=== PATIENT | female | born 1965 | race Caucasian/White ===

== ENCOUNTER 2022-12-07 10:49 | Outpatient (CLI) | payer BC, SELFPAY ==
[2022-12-07 11:49] LABS: Free T4 Free Thyroxine 1.37 ng/mL (0.78-2.19)
[2022-12-09 12:58] LABS: Vitamin D 25 Hydroxy 27.8 ng/mL
== END 2022-12-07 10:50 | disposition home or self-care (01) ==
LOC: ANHLAB 10:52
PROVIDERS: Visit Provider Internal Medicine Endocrinology, Diabetes & Metabolism
DX: E03.9 Hypothyroidism, unspecified (principal); R79.89 Other specified abnormal findings of blood chemistry
CPT/HCPCS: 36415; 82306; 84439; 84443

== ENCOUNTER 2023-07-08 08:08 | Outpatient (CLI) | payer BC, SELFPAY ==
--- NOTE | ~2023-07-08 | US_ITS ---
EXAMINATION: US thyroid DATE: 07/08/2023 08:27 INDICATION: Hypothyroidism TECHNIQUE: Multiple ultrasound images of the thyroid were obtained. COMPARISON: None. FINDINGS: The right thyroid lobe measures 5.6 x 1.9 x 2.1 cm. The left thyroid lobe measures 5.8 x 1.9 x 2.4 c m. There are 3 nodules which are solid or predominantly solid, wider than tall isoechoic with ill-def ined margins and without echogenic (TI-RADS 3, mildly suspicious , FNA if >=2.5 cm, annual followup i s >1.5 cm), the largest measuring 2.4 cm in the inferior left thyroid lobe, the second measuring 1.5 cm in the mid left thyroid and the third measuring 2.0 cm in the inferior right thyroid. There is dif fuse heterogeneous echogenicity with mildly coarsened echotexture and diffusely increased vascular fl ow throughout the thyroid which can be seen with thyroiditis. IMPRESSION: 1. Three separate TI RADS 3 nodules, the largest measuring 2.4 cm in the inferior left thyroid, which annual ultrasound follow-up would be recommended. 2. Mildly enlarged thyroid with heterogeneous echogenicity, coarsened echotexture and diffuse increas ed vascular flow on color Doppler which can be seen with thyroiditis. Reviewed, dictated and finalized at location A. IMPRESSION: 1. Three separate TI RADS 3 nodules, the largest measuring 2.4 cm in the inferi or left thyroid, which annual ultrasound follow-up would be recommended. 2. Mildly enlarged thyroid with heterogeneous echogenicity, coarsened echotextu re and diffuse increased vascular flow on color Doppler which can be seen with thyroiditis.
== END 2023-07-08 08:09 ==
LOC: MICIMG 08:09
PROVIDERS: PCP Internal Medicine Endocrinology, Diabetes & Metabolism; Visit Provider Internal Medicine Endocrinology, Diabetes & Metabolism
DX: E03.9 Hypothyroidism, unspecified (principal); E04.2 Nontoxic multinodular goiter
CPT/HCPCS: 76536

== ENCOUNTER 2023-07-08 14:01 | Outpatient (CLI) | payer BC, SELFPAY ==
[2023-07-08 08:12] LABS: Free T4 Free Thyroxine 1.02 ng/mL (0.78-2.19)
[2023-07-08 08:17] LABS: Total Triiodothyronine (T3) 1.21 NG/ML (0.97-1.69)
[2023-07-08 09:34] LABS: Free T4 Free Thyroxine Reflex 1.14 ng/dL (0.78-2.19)
[2023-07-08 18:26] LABS: Alanine Aminotransferase 18 U/L (6-35); Alkaline Phosphatase 48 U/L (38-126); Anion Gap 3 mmol/L (4-12); Aspartate Amino Transferase 22 U/L (14-36); Bilirubin,Total 0.6 mg/dL (0.2-1.3); Blood Urea Nitrogen 9 mg/dL (7-17); Calcium 9.6 mg/dL (8.4-10.2); Carbon Dioxide 29 mmol/L (22-30); Chloride 107 mmol/L (98-107); Estimated Glomerular Filt Rate > 60; Glucose 95 mg/dL (65-110); Potassium 3.9 mmol/L (3.4-5.0); Sodium 139 mmol/L (137-145)
[2023-07-10 19:13] LABS: FSH 122.9 mIU/mL
== END 2023-07-08 14:02 | disposition home or self-care (01) ==
PROVIDERS: PCP Internal Medicine Endocrinology, Diabetes & Metabolism; Visit Provider Internal Medicine Endocrinology, Diabetes & Metabolism
DX: R25.2 Cramp and spasm (principal); R20.2 Paresthesia of skin; R79.89 Other specified abnormal findings of blood chemistry; R23.2 Flushing; E03.9 Hypothyroidism, unspecified
CPT/HCPCS: 36415; 80053; 82306; 82607; 83001; 84439; 84443; 84480

== ENCOUNTER 2024-05-02 12:13 | Outpatient (CLI) | payer OTHER, SELFPAY ==
--- OUTSIDE RECORDS SUMMARY | 2024-05-02 13:19 | XMS_ITS | Encounter Summary ---
Author Organization [facility] Address [facility] [place] [address] Care Team Providers Care Enterprise Integration Developer Name Role Phone Vida Smith REGIONAL HR MANAGER Primary Care Provider Alinea ble Encounter Details Date Type Department Care Team (Latest Contact Info) Description 06/04/2020 MyChart Message Enc [facility] - [facility] [address] [facility], [address] [place] [id number] Malena Ramos, [place] [address] [address] RE: Referral Request Social History Tobacco Use Types Packs/Day Years Used Date Smoking Tobacco: Never Smokeless Tobacco: Never Alcohol Use Standard Drinks/Week Comments Yes 0 (1 standard drink = 0.6 oz pur e alcohol) socially PHQ-2 Answer Date Recorded PHQ-2 Score 0 05/23/2019 Comments No Sex and Gender Information Value Date Recorded Sex Assigned at Not on file Legal Sex Female 5:37 PM CDT Gender Identity Not on file Sexual Orientation Not on file COVID-19 Exposure Response Date Recorded In the last month, have you been in contact with someone who was confirmed or suspected to have Coronavirus / COVID-19? No / Unsure 05/24/2020 7:48 AM TAPER OPERATOR documented as of this encounter Plan of Treatment Not on file documented as of this encounter Visit Diagnoses Not on filedocumented in this encounter Additional Health Concerns Assessment Noted Time PHQ-9 Depression Total Score: 2 05/23/19 20 9:49 AM TAPER OPERATOR documented as of this encounter Care Teams Enterprise Integration Developer Relationship Specialty Start Date End Date Vida Smith, REGIONAL HR MANAGER PCP - General NURSE PRACTITIONER 05/22/19 documented as of this encounter
--- OUTSIDE RECORDS SUMMARY | 2024-05-02 13:19 | XMS_ITS | Clinical Summary ---
Author Organization [facility] Address [facility] [place] [address] Care Team Providers Care Electronic Assembly Name Role Phone Misa Shabazz REAL ESTATE OFFICE SUPERVISOR Primary Care Provider Unavaila ble Allergies No known active allergies Medications levothyroxine 50 MCG tablet Take 50 mcg by mouth daily. 03/04/2021 Active Active Problems Problem Noted Date Diagnosed Date Vitamin D deficiency 07/10/2019 Thyroid nodule 07/10/2019 Subclinical hypothyroidism 05/30/2019 Hyperlipidemia, unspecified hyperlipidemia type 05/30/2019 Positive ERAN (antinuclear antibody) 05/30/2019 Abnormal mammogram of right breast 05/25/2019 Swelling 05/23/2019 Pain of both hip joints 05/23/2019 Weight gain 05/23/2019 Overweight (BMI 25.0-29.9) 05/23/2019 Immunizations Name Administration Dates Next Due Influenza Adult (Generic) 03/04/2010 Td 05/06/2007 Tdap (Generic) 07/02/2011 Family History Medical History Relation Comments Cancer Father Hypertension Mother Diabetes Paternal Grandmother Relation Status Comments Father Mother Paternal Grandmother Social History Tobacco Use Types Packs/Day Years Used Date Smoking Tobacco: Never Smokeless Tobacco: Never Tobacco Cessation:Counseling Given: No Alcohol Use Standard Drinks/Week Comments Yes 0 (1 standard drink = 0.6 oz pur e alcohol) socially PHQ-2 Answer Date Recorded PHQ-2 Score 0 05/23/2019 Comments No Sex and Gender Information Value Date Recorded Sex Assigned at Not on file Legal Sex Female 5:37 PM CDT Gender Identity Not on file Sexual Orientation Not on file Last Filed Vital Signs Vital Sign Reading Time Taken Comments Blood Pressure 136/80 05/24/2020 7:57 AM SHOE DRESSER Pulse 89 05/24/2020 7:57 AM SHOE DRESSER Temperature 36.2 C (97.1 F) 05/24/2020 7:57 AM SHOE DRESSER Respiratory Rate 20 05/24/2020 7:57 AM SHOE DRESSER Oxygen Saturation 98% 05/24/2020 7:57 AM SHOE DRESSER Inhaled Oxygen Concentration - - Weight 80.7 kg (178 lb) 05/24/2020 7:57 AM SHOE DRESSER Height 175.3 cm (5' 9 ) 05/24/2020 7:57 AM SHOE DRESSER Body Mass Index 26.29 05/24/2020 7:57 AM SHOE DRESSER Plan of Treatment Health Maintenance Due Date Last Done Comments Colorectal Cancer Screening Colonoscopy (10 Years) 1965 Cervical Cancer Screening Pa p with HPV Testing (Age 30 to 64) Every 5 Years 1994 Zoster Vaccines (1 of 2) 2014 Annual Physical 05/24/2020 05/25/2019 Mammogram Screening 06/01/2021 06/02/2019, 05/24/2019 DTaP, Tdap and Td Vaccines ( 2 - Td or Tdap) 07/01/2021 07/02/2011, 05/06/2007 Cervical Cancer Screening Pa p Smear (Age 30 to 64) Every 3 Years 05/24/2022 05/25/2019 Cervical Cancer Screening wi th HPV 05/24/2022 COVID-19 Vaccine (2 - 2023-2 5 season) 2023 04/03/2021 Influenza Adult (#1) 2023 05/23/2020, 03/04/2010 Hepatitis C Completed 05/25/2019 Meningococcal B Vaccine Aged Out No l onger eligible based on patient's age to complete this topic Meningococcal Vaccine Aged Out No joann chito eligible based on patient's age to complete this topic Pneumococcal Vaccine: Pediatrics (0 to 5 Years) and At-Risk Patients (6 to 64 Years) Aged Out No longer eligible b ased on patient's age to complete this topic RSV Immunizations Under 20 Months Aged Out No longer eligible b ased on patient's age to complete this topic Procedures Procedure Name Priority Date/Time Associated Diagnosis Comments MG DIAGNOSTIC RT DIGI Routine 06/02/2019 8:30 AM CDT Abnormal mammogram of right breast CYTOPATH CERV/VAG THIN LAYER Routine 05/25/2019 11:08 AM SHOE DRESSER Well woman exam HEPATITIS C ANTIBODY Routine 05/25/2019 8:12 AM SHOE DRESSER Need for hepatitis C screening test from Last 3 Months or Most Recently Relevant to Health Maintenance Results * MG DIAGNOSTIC RT DIGI (06/02/2019 8:30 AM CDT) Anatomical Region Laterality Modality Breast Right Mammography 06/02/2019 8:29 AM CDT Impressions 06/02/2019 8:31 AM CDT ===== IMPRESSION: ===== 1. No findings in the right breast to suggest malignancy Assessment: ACR BI-RADS CATEGORY 2 - BENIGN FINDING(S) Recommendation: 1: Routine screening mammogram bilateral in 1 year Comments: Narrative 06/02/2019 8:31 AM CDT Examination: Digital right diagnostic mammogram Exam Date/Time: 06/02/2019 8:08 AM Reason For Exam: abnormal screening mammogram Focal asymmetry in the right breast on screening exam with further evaluation recommended Comparison: 05/23/2022/screening mammogram Technique: Digital diagnostic mammography of the right breast was performed. Additional right-sided ML as well as multi projectional spot compression views are obtained.. This study was read with the assistance of a computer-aided detection system. Tissue density: The breast tissue is heterogeneously dense. Findings: The focal asymmetry in the upper outer right breast as well as a new region of focal density in the upper inner right breast both fail to persist with spot compression imaging. No underlying persisting mass or asymmetry is appreciated. Remainder of the right breast parenchymal pattern is stable from the mammographic screening exam. Benign right axillary lymph node is again seen. There is no area of skin thickening, cluster of suspicious calcifications, or dominant mass lesion present. us Misa Shabazz REAL ESTATE OFFICE SUPERVISOR MAMMO Final Result * Cytopath Cerv/Vag Thin Layer (05/25/2019 11:08 AM SHOE DRESSER) COPATH REPORT [address] [phone] Department of Pathology Pathology Report Gynecological Cytology Report Patient Name: CHARLENE OKEEFE : 1965 (Age: 53) Location: [facility] Gender: F Collected Date: 05/25/2019 [facility] Rec #: [id number] Date Received: 05/26/2019 Date Reported: 05/26/2019 Provider: MISA SHABAZZ NP Final Cytologic Diagnosis Satisfactory for evaluation. Endocervical component present. Negative for Intraepithelial Lesion or Malignancy. Bacterial Vaginosis Electronically Signed Out By Jj Chavez Source of Specimen(s) Cervical/Endocervi yohan - Thin Prep Clinical History Screening, last Pap not provided. Z01.419 Date of Last Menstrual Period: [facility] Billing Fee Code(s): A: [address] [facility] 05/25/2019 11:0 8 AM SHOE DRESSER 05/26/2019 11:18 AM SHOE DRESSER Comment:CERVICAL/ENDOCERVICA L - THIN PREP Misa Shabazz NP PATHOLOGY/CYTOLOGY ORDERABLES F inal Result Performing Organization Address City/[facility]/ZIP Co de Phone Number [facility] [address] [place] [id number], * HEPATITIS C ANTIBODY (05/25/2019 8:12 AM SHOE DRESSER) HEPATITIS C AB NON-REACTI VE NON-REACTI VE 05/25/2019 8:31 PM SHOE DRESSER [facility] 05/25/2019 8:12 AM SHOE DRESSER Misa Shabazz REAL ESTATE OFFICE SUPERVISOR LABORATORY Final Result Performing Organization Address City/[facility]/ZIP Co de Phone Number [facility] [address] [facility] [place] [address], from Last 3 Months or Most Recently Relevant to Health Maintenance Insurance [facility] [place] [id number] [facility] Care Teams Electronic Assembly Relationship Specialty Start Date End Date Misa Shabazz NP PCP - General NURSE PRACTITIONER 05/22/19
--- OUTSIDE RECORDS SUMMARY | 2024-05-02 13:19 | XMS_ITS | Encounter Summary ---
Author Organization [facility] Address [facility] [place] [address] Care Team Providers Care Shoemaker Apprentice Name Role Phone None, Provider Primary Care Provider Unavaila ble Vida Smith NP Primary Care Provider Unavaila ble Encounter Details Date Type Department Care Team (Late st Contact Info) Description 12/08/2001 Abstract [facility] Conversion Md, Generic Conversion, Social History Tobacco Use Types Packs/Day Years Used Date Smoking Tobacco: Never Assessed Comments Unknown Sex and Gender Information Value Date Recorded Sex Assigned at Not on file Legal Sex Female 5:37 PM CDT Gender Identity Not on file Sexual Orientation Not on file documented as of this encounter Plan of Treatment Not on file documented as of this encounter Visit Diagnoses Not on filedocumented in this encounter Care Teams Shoemaker Apprentice Relationship Specialty Start Date End Date None, Provider, PCP - General 05/20/19 05/21/19 Vida Smith OUTBOARD SYSTEM OPERATOR PCP - General NURSE PRACTITIONER 05/22/19 documented as of this encounter
--- OUTSIDE RECORDS SUMMARY | 2024-05-02 13:19 | XMS_ITS | Referral Summary ---
Author Organization [email or web address] Address [address] [place] [address] Care Team Providers Care Modeling Manager Name Role Phone Unavailable Primary Care Provider Unavailabl e Source Comments [email or web address],non-owned Affiliates and Associated Physician Practices is amultiple site organization consisting of ambulatory clinics and hospital sitesin [place], [place], [place] and [place]. This disclosure is being madepursuant to the Care Everywhere program and may not contain all information available regarding this patient. Last updated [employer] [email or web address] Allergies No known active allergies Medications Be aware that medications may not be up to date on this document. Always verify current medications with the patient. No known medications Social History Tobacco Use Types Packs/Day Years Used Date Smoking Tobacco: Never Smokeless Tobacco: Never Tobacco Cessation:Counseling Given: Yes Alcohol Use Standard Drinks/Week Comments Yes 0 (1 standard drink = 0.6 oz pur e alcohol) Sex and Gender Information Value Date Recorded Sex Assigned at Not on file Gender Identity Not on file Sexual Orientation Not on file Last Filed Vital Signs Vital Sign Reading Time Taken Comments Blood Pressure 134/78 04/17/2019 6:55 PM ENVELOPE FOLDER Pulse 74 04/17/2019 6:55 PM ENVELOPE FOLDER Temperature 36.7 C (98.1 F) 04/17/2019 6:55 PM ENVELOPE FOLDER Respiratory Rate 20 04/17/2019 6:55 PM ENVELOPE FOLDER Oxygen Saturation 97% 04/17/2019 6:55 PM ENVELOPE FOLDER Inhaled Oxygen Concentration - - Weight 81.6 kg (180 lb) 04/17/2019 6:55 PM ENVELOPE FOLDER Height 177.8 cm (5' 10 ) 04/17/2019 6:55 PM ENVELOPE FOLDER Body Mass Index 25.83 04/17/2019 6:55 PM ENVELOPE FOLDER Plan of Treatment Not on file Procedures Procedure Name Priority Date/Time Associated Diagnosis Comments COMPREHENSIVE METABOLIC PANEL STAT 02/21/2018 5:05 PM ENVELOPE FOLDER from Last 3 Months or Most Recently Relevant to Health Maintenance Results * (ABNORMAL) COMPREHENSIVE METABOLIC PANEL (02/21/2018 5:05 PM ENVELOPE FOLDER) Glucose 93 74 - 106 mg/dL 02/21/2018 5:34 PM [facility] Sodium 138 136 - 145 mmol/L 02/21/2018 5:34 PM [facility] Potassium 3.7 3.5 - 5.1 mmol/L 02/21/2018 5:34 PM [facility] Chloride 105 98 - 107 mmol/L 02/21/2018 5:34 PM [facility] CO2 28 22 - 31 mmol/L 02/21/2018 5:34 PM [facility] Calcium 9.4 8.5 - 10.1 mg/dL 02/21/2018 5:34 PM [facility] Anion Gap 5(L) 8 - 16 mmol/L 02/21/2018 5:34 PM [facility] BUN 11 7 - 21 mg/dL 02/21/2018 5:34 PM [facility] Creatinine 0.76 0.50 - 1.30 mg/dL 02/21/2018 5:34 PM [facility] Alkaline Phosphatase 73 38 - 126 U/L 02/21/2018 5:34 PM [facility] ALT 27 13 - 61 U/L 02/21/2018 5:34 PM [facility] AST 13 5 - 40 U/L 02/21/2018 5:34 PM [facility] Protein Total 7.6 6.4 - 8.2 gm/dL 02/21/2018 5:34 PM [facility] Albumin 3.8 3.4 - 5.0 gm/dL 02/21/2018 5:34 PM [facility] Bilirubin Total 0.3 0.2 - 1.0 mg/dL 02/21/2018 5:34 PM [facility] eGFR by MDRD >60 >60 mL/min/1.7 3m2 02/21/2018 5:34 PM [facility] eGFR by MDRD >60 >60 mL/min/1.7 3m2 02/21/2018 5:34 PM ENVELOPE FOLDER [facility] Blood BLOOD SPECIMEN / Unknown Venipuncture / Unknown 02/21/2018 5:05 PM ENVELOPE FOLDER 02/21/2018 5:09 PM ENVELOPE FOLDER Jose Lao MD LAB - CHEMISTRY TASHIA VIVAR [facility] [address] [place] [address] from Last 3 Months or Most Recently Relevant to Health Maintenance CHARLENE OKEEFE Personal/Famil y 1965 [address] [place] [address] Charlene Okeefe Personal/Famil y Self 1965 [address] [place] [address]
--- OUTSIDE RECORDS SUMMARY | 2024-05-02 13:19 | XMS_ITS | Patient Health Summary ---
Author Organization [facility] [employer] Address [address] [place] [address] Care Team Providers Care Survey And Mapping Technician Name Role Phone Unavailable Primary Care Provider Unavailabl e Note from [facility],non-owned Affiliates and Associated Physician Practices is amultiple site organization consisting of ambulatory clinics and hospital sitesin [place], [place], [place] and [place]. This disclosure is being madepursuant to the Care Everywhere program and may not contain all information available regarding this patient. Last updated 17.[facility] Allergies No known active allergies Medications Be [...] Comments Blood Pressure 134/78 04/17/2019 6:55 PM BIODIESEL PROCESS CONTROL TECHNICIAN Pulse 74 04/17/2019 6:55 PM BIODIESEL PROCESS CONTROL TECHNICIAN Temperature 36.7 C (98.1 F) 04/17/2019 6:55 PM BIODIESEL PROCESS CONTROL TECHNICIAN Respiratory Rate 20 04/17/2019 6:55 PM BIODIESEL PROCESS CONTROL TECHNICIAN Oxygen Saturation 97% 04/17/2019 6:55 PM BIODIESEL PROCESS CONTROL TECHNICIAN Inhaled Oxygen Concentration - - Weight 81.6 kg (180 lb) 04/17/2019 6:55 PM BIODIESEL PROCESS CONTROL TECHNICIAN Height 177.8 cm (5' 10 ) 04/17/2019 6:55 PM BIODIESEL PROCESS CONTROL TECHNICIAN Body Mass Index 25.83 04/17/2019 6:55 PM BIODIESEL PROCESS CONTROL TECHNICIAN Procedures * INFLUENZA A+B - POINT OF CARE (AMB)(Performed 04/17/2019) Performed for Maxillary sinusitis, unspecified chronicity * CBC W AUTO DIFFERENTIAL(Performed 02/21/2018) * HCG BLOOD QUALITATIVE(Performed 02/21/2018) * CK BLOOD(Performed 02/21/2018) * D-DIMER(Performed 02/21/2018) * COMPREHENSIVE METABOLIC PANEL(Performed 02/21/2018) * PULSE OXIMETRY - POINT OF CARE (AMB)(Performed 05/19/2017) Performed for Flu-like symptoms * INFLUENZA A+B - POINT OF CARE (AMB)(Performed 05/19/2017) Performed for Flu-like symptoms * STREP A SCREEN - POINT OF CARE (AMB) STL(Performed 05/19/2017) Performed for Flu-like symptoms Results * INFLUENZA A+B - POINT OF CARE (AMB) (04/17/2019) Only the most recent of2 resultswithin the time period is included. Pathologist [facility] Influenza A Antigen Rapid Negative Negative Influenza B Antigen Rapid Negative Negative Influenza Internal Control present NEGATIVE - POSITIVE Influenza Lot Number [id number] Influenza Expiration Date 06/29/20 Other NASOPHARYNGEAL SWAB / Unknown 04/17/2019 Roxanna Chacno APRN-[facility] - POINT OF CARE ORDERABLES * CBC W AUTO DIFFERENTIAL (02/21/2018 5:06 PM BIODIESEL PROCESS CONTROL TECHNICIAN) Pathologist [facility] WBC 4.9 4.4 - 10.7 x10E9/L 02/21/2018 5:12 PM BIODIESEL PROCESS CONTROL TECHNICIAN [facility] WBC Corrected x10E9/L 02/21/2018 5:12 PM BIODIESEL PROCESS CONTROL TECHNICIAN [facility] RBC 4.65 3.80 - 5.20 x10E12/L 02/21/2018 5:12 PM [facility] Hemoglobin 13.8 12.0 - 15.6 gm/dL 02/21/2018 5:12 PM [facility] Hematocrit 42.2 35.9 - 45.5 % 02/21/2018 5:12 PM BIODIESEL PROCESS CONTROL TECHNICIAN [facility] MCV 90.8 80.7 - 98.3 fl 02/21/2018 5:12 PM [facility] MCH 29.7 26.7 - 34.0 pg 02/21/2018 5:12 PM [facility] MCHC 32.7 30.8 - 35.9 gm/dL 02/21/2018 5:12 PM [facility] Platelet Count 231 153 - 416 x10E9/L 02/21/2018 5:12 PM [facility] RDW-CV 12.3 12.1 - 14.9 % 02/21/2018 5:12 PM [facility] MPV 11.5 9.4 - 12.9 fl 02/21/2018 5:12 PM [facility] Neutrophils % 50.5 44.0 - 73.0 % 02/21/2018 5:12 PM [facility] Lymphocytes % 37.1 20.0 - 43.0 % 02/21/2018 5:12 PM [facility] Monocytes % 8.9 5.0 - 13.0 % 02/21/2018 5:12 PM [facility] Eosinophils % 2.3 0.0 - 6.0 % 02/21/2018 5:12 PM [facility] Basophils % 1.0 0.0 - 2.0 % 02/21/2018 5:12 PM [facility] Immature Granulocytes 0.2 0 - 1 % 02/21/2018 5:12 PM [facility] Neutrophil Absolute 2.45 2.01 - 7.14 x10E9/L 02/21/2018 5:12 PM [facility] Lymphocytes Absolute 1.80 1.07 - 3.94 x10E9/L 02/21/2018 5:12 PM [facility] Monocytes Absolute 0.43 0.26 - 1.07 x10E9/L 02/21/2018 5:12 PM [facility] Eosinophils Absolute 0.11 0 - 0.47 x10E9/L 02/21/2018 5:12 PM [facility] Basophils Absolute 0.05 0 - 0.08 x10E9/L 02/21/2018 5:12 PM [facility] Immature Granulocytes Absolute 0.01 0.00 - 0.06 x10E9/L 02/21/2018 5:12 PM [facility] nRBC Auto 0 /100 WBC 02/21/2018 5:12 PM [facility] Blood BLOOD SPECIMEN / Unknown Venipuncture / Unknown 02/21/2018 5:06 PM BIODIESEL PROCESS CONTROL TECHNICIAN 02/21/2018 5:10 PM BIODIESEL PROCESS CONTROL TECHNICIAN Jose Lao MD LAB - HEMATOLOGY ORD ERABLES Performing Organization Address [facility]/ZIP Co de Phone Number [facility] [address] [place] [address] * D-DIMER (02/21/2018 5:05 PM BIODIESEL PROCESS CONTROL TECHNICIAN) Pathologist [facility] D-Dimer 0.21 0.17 - 0.5 mg/L FEU 02/21/2018 5:23 PM BIODIESEL PROCESS CONTROL TECHNICIAN [facility] Blood BLOOD SPECIMEN / Unknown Venipuncture / Unknown 02/21/2018 5:05 PM BIODIESEL PROCESS CONTROL TECHNICIAN 02/21/2018 5:10 PM BIODIESEL PROCESS CONTROL TECHNICIAN Narrative [facility] - 02/21/2018 5:23 PM BIODIESEL PROCESS CONTROL TECHNICIAN The [employer] D-Dimer assay is intended for use as an aid in diagnosis of venous thromboembolism [(VTE): deep vein thrombosis (DVT), pulmonary embolism (PE), and disseminated intravascular coagulation (DIC)], and has received U.S. Food and Drug Administration (FDA) approval to exclude VTE in patients with low or moderate pretest probability of PE or DVT (per Wells' rules). At a clinical cut-off value 0.50 mg/L FEU, the Negative Predictive Value of this assay is 99.8% for excluding PE and 100% for excluding DVT. A very low percentage of patients with VTE may yield D-Dimer results below the cut-off value. An elevated D-Dimer result has low specificity (40.4% for PE, 35.5% for DVT) and is a poor predictor of VTE. An elevated D-Dimer result may indicate DIC in the appropriate clinical setting. Results of this test should always be interpreted in conjunction with the patient's medical history, clinical presentation, and other findings. Jose Lao MD LAB - COAGULATION OR DERABLES Performing Organization Address [facility]/ZIP Co de Phone Number [facility] [address] [place] [address] * (ABNORMAL) COMPREHENSIVE METABOLIC PANEL (02/21/2018 5:05 PM BIODIESEL PROCESS CONTROL TECHNICIAN) Glucose 93 74 - 106 mg/dL 02/21/2018 5:34 PM [facility] Sodium 138 136 - 145 mmol/L 02/21/2018 5:34 PM [facility] Potassium 3.7 3.5 - 5.1 mmol/L 02/21/2018 5:34 PM [facility] Chloride 105 98 - 107 mmol/L 02/21/2018 5:34 PM [facility] CO2 28 22 - 31 mmol/L 02/21/2018 5:34 PM [facility] Calcium 9.4 8.5 - 10.1 mg/dL 02/21/2018 5:34 PM [facility] Anion Gap 5(L) 8 - 16 mmol/L 02/21/2018 5:34 PM [facility] BUN 11 7 - 21 mg/dL 02/21/2018 5:34 PM [facility] Creatinine 0.76 0.50 - 1.30 mg/dL 02/21/2018 5:34 PM [facility] Alkaline Phosphatase 73 38 - 126 U/L 02/21/2018 5:34 PM [facility] ALT 27 13 - 61 U/L 02/21/2018 5:34 PM [facility] AST 13 5 - 40 U/L 02/21/2018 5:34 PM [facility] Protein Total 7.6 6.4 - 8.2 gm/dL 02/21/2018 5:34 PM [facility] Albumin 3.8 3.4 - 5.0 gm/dL 02/21/2018 5:34 PM [facility] Bilirubin Total 0.3 0.2 - 1.0 mg/dL 02/21/2018 5:34 PM [facility] eGFR by MDRD >60 >60 mL/min/1.7 3m2 02/21/2018 5:34 PM [facility] eGFR by MDRD >60 >60 mL/min/1.7 3m2 02/21/2018 5:34 PM [facility] Blood BLOOD SPECIMEN / Unknown Venipuncture / Unknown 02/21/2018 5:05 PM BIODIESEL PROCESS CONTROL TECHNICIAN 02/21/2018 5:09 PM [facility] Jose Lao MD LAB - CHEMISTRY TASHIA VIVAR [facility] Organization Address City/State/ZIP Co de Phone Number [facility] [address] [place] [address] * CK BLOOD (02/21/2018 5:05 PM BIODIESEL PROCESS CONTROL TECHNICIAN) [facility] CK 62 35 - 232 U/L 02/21/2018 5:34 PM BIODIESEL PROCESS CONTROL TECHNICIAN [facility] Blood BLOOD SPECIMEN / Unknown Venipuncture / Unknown 02/21/2018 5:05 PM BIODIESEL PROCESS CONTROL TECHNICIAN 02/21/2018 5:09 PM BIODIESEL PROCESS CONTROL TECHNICIAN Jose Lao MD LAB - CHEMISTRY TASHIA VIVAR [facility] [address] [place] [address] * HCG BLOOD QUALITATIVE (02/21/2018 5:05 PM BIODIESEL PROCESS CONTROL TECHNICIAN) [facility] HCG Qual Serum Negative Negative 02/21/2018 5:25 PM BIODIESEL PROCESS CONTROL TECHNICIAN [facility] Blood BLOOD SPECIMEN / Unknown Venipuncture / Unknown 02/21/2018 5:05 PM BIODIESEL PROCESS CONTROL TECHNICIAN 02/21/2018 5:09 PM BIODIESEL PROCESS CONTROL TECHNICIAN Jose Lao MD LAB - CHEMISTRY TASHIA VIVAR [facility] [address] [place] [address] * PULSE OXIMETRY - POINT OF CARE (AMB) (05/19/2017) [facility] Oximetry POCT 0 - 100 97% QC Verified Yes Blood BLOOD SPECIMEN / Unknown 05/19/2017 More [facility] - POINT OF CAR E ORDERABLES * STREP A SCREEN - POINT OF CARE (AMB) STL (05/19/2017) [facility] Strep A Rapid POCT Negative Negative Strep A Internal Control Present Lot # [id number] Expiration Date 11/26/2018 Throat ENTIRE THROAT (SURFACE REGION OF NECK) / Unknown 05/19/2017 More Landa APRN-[facility] - POINT OF ALYCIA GUILLENABLES
--- OUTSIDE RECORDS SUMMARY | 2024-05-02 13:19 | XMS_ITS | Clinical Summary ---
Author Organization [employer] Address [address] [place] [address] Care Team Providers Care Headlight Assembler Name Role Phone Unavailable Primary Care Provider Unavailabl e Source Comments [employer] [facility],non-owned Affiliates and Associated Physician Practices is amultiple site organization consisting of ambulatory clinics and hospital sitesin [place], [place], [place] and [place]. This disclosure is being madepursuant to the Care Everywhere program and may not contain all information available regarding this patient. Last updated 17.[facility] Allergies No known active allergies Medications Be aware that medications may not be up to date on this document. Always verify current medications with the patient. No known medications Family History Medical History Relation Name Comments Asthma Neg Hx Autoimmune Disease Neg Hx Bipolar Disorder Neg Hx Cancer - Breast Neg Hx Cancer - Colon Neg Hx Cancer - Other Neg Hx Cancer - Ovarian Neg Hx Cancer - Pancreatic Neg Hx Cancer - Prostate Neg Hx Depression Neg Hx Eczema Neg Hx Hypertension Neg Hx Migraine Neg Hx Osteoporosis Neg Hx Seizures Neg Hx Sudd. <30 Neg Hx Thyroid Disease Neg Hx Ulcerative Colitis Neg Hx Social History Tobacco Use Types Packs/Day Years [...] Comments Blood Pressure 134/78 04/17/2019 6:55 PM SUPPLY TEACHER Pulse 74 04/17/2019 6:55 PM SUPPLY TEACHER Temperature 36.7 C (98.1 F) 04/17/2019 6:55 PM SUPPLY TEACHER Respiratory Rate 20 04/17/2019 6:55 PM SUPPLY TEACHER Oxygen Saturation 97% 04/17/2019 6:55 PM SUPPLY TEACHER Inhaled Oxygen Concentration - - Weight 81.6 kg (180 lb) 04/17/2019 6:55 PM SUPPLY TEACHER Height 177.8 cm (5' 10 ) 04/17/2019 6:55 PM SUPPLY TEACHER Body Mass Index 25.83 04/17/2019 6:55 PM SUPPLY TEACHER Plan of Treatment Health Maintenance Due Date Last Done Comments COLOGUARD (AGES 45-75) - COL ON CA SCREENING 1965 COLON MONITORING 1965 COLONOSCOPY - COLON CA SCREENING 1964 CT COLONOGRAPHY - COLON CA SCREENING 1965 Colorectal Cancer Screening 1965 FIT - COLON CA SCREENING 1965 FLEX SIG - COLON CA SCREENING 1965 LIPID TESTING 1965 MAMMOGRAM 1965 PAP SMEAR 1965 HIV SCREENING 08/02/1979 HEPATITIS C SCREENING 07/28/1982 DTAP/TDAP/TD VACCINES (1 - Tdap) 08/02/1983 HEPATITIS B VACCINE (1 of 3 - 19+ 3-dose series) 08/02/1983 PNEUMOCOCCAL VACCINE 50+ (1 of 1 - PCV) 2014 ZOSTER VACCINE (1 of 2) 2014 SCREENING FOR DIABETES 02/21/2021 02/21/2018 COVID-19 VACCINE (1 - 2023-2 5 season) 2023 INFLUENZA VACCINE (#1) 2023 DEPRESSION SCREENING 03/22/2024 HIB VACCINE Aged Out No longer eligi ble based on patient's age to complete this topic HPV VACCINE Aged Out No longer eligi ble based on patient's age to complete this topic MENINGOCOCCAL (Group B) VACCINE Aged Out No longer eligible based on patient's age to complete this topic MENINGOCOCCAL VACCINE Aged Out No joann chito eligible based on patient's age to complete this topic PNEUMOCOCCAL VACCINE Aged Out No long er eligible based on patient's age to complete this topic Procedures Procedure Name Priority Date/Time Associated Diagnosis Comments COMPREHENSIVE METABOLIC PANEL STAT 02/21/2018 5:05 PM SUPPLY TEACHER from Last 3 Months or Most Recently Relevant to Health Maintenance Results * (ABNORMAL) COMPREHENSIVE METABOLIC PANEL (02/21/2018 5:05 PM SUPPLY TEACHER) [facility] Glucose 93 74 - 106 mg/dL 02/21/2018 5:34 PM [facility] Sodium 138 136 - 145 mmol/L 02/21/2018 5:34 PM [facility] Potassium 3.7 3.5 - 5.1 mmol/L 02/21/2018 5:34 PM [facility] Chloride 105 98 - 107 mmol/L 02/21/2018 5:34 PM [facility] CO2 28 22 - 31 mmol/L 02/21/2018 5:34 PM [facility] Calcium 9.4 8.5 - 10.1 mg/dL 02/21/2018 5:34 PM [facility] Anion Gap 5(L) 8 - 16 mmol/L 02/21/2018 5:34 PM [facility] BUN 11 7 - 21 mg/dL 02/21/2018 5:34 PM [facility] Creatinine 0.76 0.50 - 1.30 mg/dL 02/21/2018 5:34 PM [facility] Alkaline Phosphatase 73 38 - 126 U/L 02/21/2018 5:34 PM [facility] ALT 27 13 - 61 U/L 02/21/2018 5:34 PM [facility] AST 13 5 - 40 U/L 02/21/2018 5:34 PM [facility] Protein Total 7.6 6.4 - 8.2 gm/dL 02/21/2018 5:34 PM [facility] Albumin 3.8 3.4 - 5.0 gm/dL 02/21/2018 5:34 PM [facility] Bilirubin Total 0.3 0.2 - 1.0 mg/dL 02/21/2018 5:34 PM [facility] eGFR by MDRD >60 >60 mL/min/1.7 3m2 02/21/2018 5:34 PM [facility] eGFR by MDRD >60 >60 mL/min/1.7 3m2 02/21/2018 5:34 PM [facility] Blood BLOOD SPECIMEN / Unknown Venipuncture / Unknown 02/21/2018 5:05 PM SUPPLY TEACHER 02/21/2018 5:09 PM [facility] Jose Lao MD LAB - CHEMISTRY TASHIA IVVAR [facility] [address] [place] [address] from Last 3 Months or Most Recently Relevant to Health Maintenance CHARLENE OKEEFE Personal/Famil y 1965 [address] [place] [address] Charlene Okeefe Personal/Famil y Self 1965 [address] [place] [address]
--- OUTSIDE RECORDS SUMMARY | 2024-05-02 13:19 | XMS_ITS | Encounter Summary ---
Author Organization [facility] Address [facility] [place] [address] Care Team Providers Care Supervisor Machine Setter Name Role Phone Vida Smith BENCH TOOL MAKER Primary Care Provider Unavaila ble Reason for Visit * Reason Onset Date Comments Medication Question 08/07/2019 med question Encounter Details Date Type Department Care Team (Late st Contact Info) Description 08/07/2019 MyChart Message Enc [facility] Family Medicine [facility] [address] [place] [address] Vida Smith, BENCH TOOL MAKER Medication Questions Social History Tobacco Use Types Packs/Day Years [...] have Coronavirus / COVID-19? No / Unsure 08/07/2019 12:03 PM CDT documented as of this encounter Progress Notes * Yokasta Madison MA - 08/08/2019 11:07 AM CDT Pt aware of Muriel message, verbalized understanding. No questions. * Abimael Thurman RN - 08/08/2019 9:12 AM CDT Pt called back, but I was on the phone. Tried to call patient back and had to leave another voicemail. * Abimael Thurman RN - 08/08/2019 8:41 AM CDT LVM for patient to call back to discuss this. * Vida Smith NP - 08/08/2019 8:34 AM CDT Please let patient know that I would like for her to continue the medication and see if there are any changes in the next 6 weeks. Her numbers dropped almost half. I know she was expecting to feel some difference but sometimes it takes a while for our bodies to adjust. I will keep her at the same dose and increase in 6 weeks if she remains symptomatic. * Abimael Thurman RN - 08/08/2019 8:07 AM CDT Spoke to patient. She states that she knows her TSH is normal now, but she still does not feel energized and feels very fatigued. Pt states, I just don't feel like myself. Pt also states her weighthas not been moving, even though she has been exercising. Pt states she only has 1-2 pills left of the levothyroxine and will need a refill if she is supposed to stay on the same dose. Pt states she did call Dr. Kaur's office a few days ago and has not heard anything back. She states the last time she had labs done, it took them a few days to call her back as well. * Vida Smith NP - 08/07/2019 3:38 PM CDT She should continue medications. What does she mean she is not feeling quite right. Did she ever follow up with Dr. Kaur? * Abimael Thurman RN - 08/07/2019 2:10 PM CDT Please advise. Thanks! * Chiquita Sylvester - 08/07/2019 1:59 PM CDT Pt would like a call back re her thyroid meds. She states her labwork was better but she is still not feeling quite right and wants to know if she should be continuing her thyroid meds or not. Pleasecall her back at [phone] documented in this encounter Plan of Treatment Not on file documented as of this encounter Visit Diagnoses Diagnosis Subclinical hypothyroidism Other specified acquired hypothyroidism documented in this encounter Additional Health Concerns Assessment Noted Time PHQ-9 Depression Total Score: 2 05/23/19 20 9:49 AM EQUIPMENT MAINTENANCE SUPERVISOR documented as of this encounter Care Teams Supervisor Machine Setter Relationship Specialty Start Date End Date Vida Smith NP PCP - General NURSE PRACTITIONER 05/22/19 documented as of this encounter
--- OUTSIDE RECORDS SUMMARY | 2024-05-02 13:19 | XMS_ITS | Continuity of Care Document ---
Author Organization [facility] Address [address] [place] [address] Phone Care Team Providers Care Materials Development Engineer Name Role Phone Gladys Gar Unavailable Unavailable Advance Directives Directive Yes / No Effective Date File Name No Information Encounters Encounter Description Practice Location Reason(s) For Visit Diagnoses Date Provider Providers Copied on Encounter [employer] [address], [place], [place], [id number], [place] tel:[phone] [facility] [facility] No Information Melita Graham. [address], [place], [id number], [place]. tel:[phone] Family History Family Member Type Diagnosis Age At Onset No Information Payers Payer name Insurance type Covered democrat ID Authoriza tion(s) No Information Social History Type Description Quantity Date Captured Comments Sex Female Smoking Status No Information Chief Complaint And Reason For Visit No Information Reason For Referral Reason For Referral No Information History Of Present Illness Encounter Date Complaint History Of Prese nt Illness No Information Functional Status Date Functional Assessmen t No Information Instructions Date Instruction Additional Infor mation No Information Assessments Type Assessment Date No Information Patient Care Teams Name Effective Dates (start - stop) Status Members No Information
[2024-05-02 13:49] LABS: Free T4 Free Thyroxine 1.37 ng/dL (0.78-2.19)
== END 2024-05-02 12:14 | disposition home or self-care (01) ==
LOC: ANHLAB 12:21
PROVIDERS: PCP Internal Medicine Endocrinology, Diabetes & Metabolism; Visit Provider Internal Medicine Endocrinology, Diabetes & Metabolism
DX: E03.9 Hypothyroidism, unspecified (principal)
CPT/HCPCS: 36415; 84439